=== PATIENT | female | born 1950 | race African-American/Black ===

== ENCOUNTER 2016-10-07 17:18 | Emergency (ER) | payer OTHER, MEDICAID ==
[~2016-10-07] VITALS: Ht 160 cm; Wt 74.8 kg
--- NOTE | 2016-10-07 17:20 | NUR ---
[id number], CAME TO ER C/O HEADACHE S/P MV [employer]+ [employer], +AB, -KO, +SB. PATIENT IS CONCERN D/T THE FACT THAT SHE JUST HAD A BRAIN SURGERY 2 WEEKS AGO. SKIN IS WARM AND DRY. RESPIRATION IS EVEN AND UNLABORED WITH NAD NOTED. AWAITING MD FOR EVAL.
[2016-10-07] MEDS ORDERED: ACETAMINOPHEN 325 MG TABLET ONE (18:21)
--- NOTE | 2016-10-07 18:27 | NUR ---
DR VÁSQUEZ VERBALLY ORDERED TYLENOL 650MG PO FOR HEADACHE.
[2016-10-07] MEDS ORDERED: ACETAMINOPHEN 325 MG TABLET PO ONE (18:30)
[2016-10-07 19:22] VITALS: BP 124/84
== END 2016-10-07 19:24 | disposition home or self-care (01) ==
LOC: ER 17:21
DX: S09.90XA Unspecified injury of head, initial encounter (principal); S80.811A Abrasion, right lower leg, initial encounter; R51 Headache; Z98.890 Other specified postprocedural states; V43.52XA Car driver injured in collision with other type car in traffic accident, initial encounter; Y93.89 Activity, other specified; Y92.89 Other specified places as the place of occurrence of the external cause; Y99.9 Unspecified external cause status
CPT/HCPCS: 70450; 99284; A4606; Z7610

== ENCOUNTER 2020-03-08 20:56 | Emergency (ER) | payer OTHER ==
[~2020-03-08] VITALS: Ht 160 cm; Wt 77.1 kg
[2020-03-08 21:22] VITALS: BP 178/85
[2020-03-08] MEDS ORDERED: IBUPROFEN 400 MG TABLET PO ONE (22:00)
[2020-03-08] MEDS ORDERED: TDAP [DIPH/PERTUSSIS/TET] 0.5 ML VIAL IM ONE ×2 (22:00→22:03)
[2020-03-08] MEDS ORDERED: IBUPROFEN 600 MG TABLET ONE (22:02)
--- NOTE | 2020-03-08 22:16 | NUR ---
Patient discharged to home in stable condition. Written and verbal after care instructions given. Patient verbalizes understanding of instruction.
== END 2020-03-08 22:17 | disposition home or self-care (01) ==
LOC: ER 21:03
DX: T22.212A Burn of second degree of left forearm, initial encounter (principal); I10 Essential (primary) hypertension; E11.9 Type 2 diabetes mellitus without complications; Z23 Encounter for immunization; Z98.890 Other specified postprocedural states; X12.XXXA Contact with other hot fluids, initial encounter; Y93.89 Activity, other specified; Y92.89 Other specified places as the place of occurrence of the external cause; Y99.8 Other external cause status
CPT/HCPCS: 90715